=== PATIENT | male | born 1980 | race Caucasian/White ===

== ENCOUNTER 2018-08-22 11:34 | Day surgery (SDC) | payer OTHER ==
[2018-08-21 09:19] VITALS: BMI 37.6
[2018-08-22 12:23] VITALS: RESP 16; TEMP 97.8
[2018-08-22] MEDS ORDERED: LACTATED RINGERS 1,000 ML IV ONE (12:31)
[2018-08-22] MEDS ORDERED: LIDOCAINE 1% 20 ML VIAL (10MG/ML) FOR IV START INTRADERMA ONE (12:31)
[2018-08-22] MEDS ORDERED: PROPOFOL 10 MG/ML 20 ML VIAL IV ONE (12:53)
--- NOTE | 2018-08-22 13:11 | P.PCN ---
Date of Procedure: 08/22/18 Procedure(s) Performed: Brief history: Patient is a pleasant 37-year-old white male, scheduled for an elective upper endoscopy as well as colonoscopy as a part of evaluation of epigastric pain, GERD and chronic diarrhea for the last 2 months duration. He has bowel movements anywhere from 6-8 a day which are loose to watery in consistency but denies any blood or mucus in the stool. Procedure performed: Esophagogastroduodenoscopy with biopsy Colonoscopy with biopsy Preoperative diagnosis: Epigastric pain Chronic diarrhea of 2 months duration Anesthesia: MAC Procedure: After informed consent was obtained from the patient was brought into the endoscopy unit and IV sedation was administered by anesthesia under continuous monitoring. Initially upper endoscopy was done. The Olympus GF 160 video endoscope was inserted inserted into the mouth and esophagus intubated without any difficulty and was gradually advanced into the stomach and duodenum and carefully examined. The bulb and second part of the duodenum appeared normal. Biopsies were done from the duodenum to rule out celiac disease. The scope was then withdrawn into the stomach adequately insufflated with air and upon careful examination the antrum had mild gastritis and biopsies were done from this area. The body, cardia and fundus appeared normal. The scope was then withdrawn into the esophagus. The GE junction was located at 40 cm to the incisors. It appeared regular with no erythema erosions or ulcerations. Rest of the esophagus appeared normal. Patient tolerated the procedure well. At this time the patient continued to remain sedation. Initial digital rectal examination was normal. Olympus CF 160 video colonoscope was then inserted into the rectum and gradually advanced to the cecum without any difficulty. Careful examination was performed as the scope was gradually being withdrawn. The prep was excellent. The cecum, ascending colon, transverse colon, descending colon, sigmoid colon and rectum appeared normal. and biopsies were done from ascending and descending colon to rule out microscopic/collagenous colitis. Retroflexion was performed in the rectum and no lesions were noted. Patient tolerated the procedure well. Impression: 1. Upper endoscopy revealed mild gastritis but no evidence of esophagitis or peptic ulcer disease 2. Colonoscopy was within normal limits with no evidence of colitis or colorectal neoplasia Recommendations: Findings of this examination were discussed with the patient as well as his family. He was advised to follow with the biopsy results. In the meantime she will continue with dicyclomine 10 mg 4 times daily as needed and he'll be seen in the office in 2-3 weeks.
[2018-08-22 13:34] VITALS: BP 135/88; PULSE 78
== END 2018-08-22 13:49 | disposition home or self-care (01) ==
LOC: ORWHC2ENDO 11:34
PROVIDERS: ATTEND Internal Medicine Gastroenterology
DX: K29.50 Unspecified chronic gastritis without bleeding (principal); Z79.899 Other long term (current) drug therapy; E78.5 Hyperlipidemia, unspecified; G47.33 Obstructive sleep apnea (adult) (pediatric); F17.200 Nicotine dependence, unspecified, uncomplicated; K21.9 Gastro-esophageal reflux disease without esophagitis
CPT/HCPCS: 88305; 45380; 43239; J2704

== ENCOUNTER → 2018-09-04 | Outpatient (CLI) | payer OTHER ==
--- NOTE | 2018-09-04 21:47 | CONS ---
CONSULTATION DATE OF SERVICE: 09/04/2018 37-year-old gentleman who has been evaluated in the sleep center for possible obstructive sleep apnea-hypopnea syndrome. HISTORY OF PRESENT ILLNESS/SLEEP WAKE EVALUATION: SLEEP SCHEDULE: Patient usual sleep schedule on working days from 11:30 p.m. to 7 a.m., on weekends from 11 or 12 midnight until noon time. FALLING ASLEEP: Sometimes he has problem with falling asleep. Has TV set in bedroom. DURING SLEEP: He sleeps in different position with extremely loud snoring and witnessed episodes of stopped breathing during the sleep by his . He wakes up from sleep with choking, nocturia, dry mouth, heartburn, episodes of gasping for air, restless legs, sweating up to 6 times at night. DURING THE DAY/SLEEP WAKE EVALUATION: In the morning, patient wakes up tired, has difficulties to pay attention, falling asleep during the day, worries about his sleep, has problems with memory, concentration, irritability and anxiety. Botkins Sleepiness Scale is in extremely high range of 22. The patient does not have scheduled naps, but sometimes falling asleep unpredictably. Usually he does not remember his dreams, but sometimes there are episodes of out of dream movements of his arms usually in 2nd part of the night. No history of hypnagogic hallucinations, sleep paralysis or cataplexy. PAST MEDICAL HISTORY: Positive for hypertension, acid reflux, anxiety. PAST SURGICAL HISTORY: Spinal fusion, level . MEDICATIONS: Zoloft, omeprazole, losartan. SOCIAL HISTORY: Positive for smoking less than 1 pack a day for about 20 years ago. Alcohol consumption rarely. FAMILY HISTORY: Hypertension, snoring, headaches, acid reflux. REVIEW OF SYSTEMS: Multiple awakenings from sleep, significant excessive daytime sleepiness. PHYSICAL EXAM: gentleman without distress. BP 133/69, HR 94, RR 16, height 5 feet 9 inches, weight 278 pounds. Body mass index 41.0, temperature 98.6, oxygen saturation at room air 96%. HEENT: Oropharynx: Low position of soft palate. Mallampati 3. Wide pillars. Wide neck 17-1/2 inches in circumference. NECK : Supple, no JVD. Thyroid is not palpable. LUNGS Clear to percussion and to auscultation. Good air exchange. No wheezing or rhonchi. HEART S1, S2 regular. No murmurs, gallops, or rubs. ABDOMEN: Obese. Soft and nontender. Bowel sounds are present. No organomegaly appreciated. EXTREMITIES No clubbing or cyanosis. CLINICAL EDUCATION ASSISTANT Awake, alert, and oriented X3. Cranial nerves 2 to 7 intact. There is no fasciculation or atrophy. noted. No focal deficits observed. IMPRESSION: 1. Loud snoring, witnessed episodes of stopped breathing during the sleep multiple awakenings from sleep, significant excessive daytime sleepiness. Wide neck. Obstructive sleep apnea-hypopnea syndrome. 2. Obesity BMI 41.0. 3. Episodes of out of dream movements usually in the morning hours. Possible REM sleep behavioral disorder. 4. Hypertension. 5. Acid reflux. 6. History of anxiety. 7. History of back problems status post spinal fusion, level is . 8. History of sleep talking. PLAN: 1. Polysomnography for evaluation of patient's breathing during sleep. 2. CPAP/BiPAP titration if sleep study confirms obstructive sleep apnea-hypopnea syndrome. 3. Preferable position during sleep on the side. 4. No driving if patient feels any sleepiness. 5. I will see patient for follow up visit to explain results of testing and following plan. Thank you very much for referring this patient for consultation. Sincerely, Amadou Vides MD, PhD, FAASM Diplomat of [place] [employer] [place] [employer] [facility] [place] MMODL / KARIN: [id number] /
== END | disposition home or self-care (01) ==
LOC: SLEEP 16:41
PROVIDERS: ATTEND Internal Medicine
DX: G47.33 Obstructive sleep apnea (adult) (pediatric) (principal); E66.9 Obesity, unspecified; I10 Essential (primary) hypertension; K21.9 Gastro-esophageal reflux disease without esophagitis; F17.210 Nicotine dependence, cigarettes, uncomplicated; Z68.41 Body mass index [BMI] 40.0-44.9, adult; Z86.59 Personal history of other mental and behavioral disorders; Z87.39 Personal history of other diseases of the musculoskeletal system and connective tissue; Z87.898 Personal history of other specified conditions; Z98.1 Arthrodesis status; Z79.899 Other long term (current) drug therapy
CPT/HCPCS: 99211

== ENCOUNTER → 2018-12-11 | Outpatient (CLI) | payer OTHER ==
--- NOTE | 2018-12-11 20:05 | PN ---
PROGRESS NOTE DATE OF SERVICE: 12/11/2018 This patient is a 38-year-old gentleman who has been followed in Sleep Center for treatment of obstructive sleep apnea-hypopnea syndrome. Recently the patient had a polysomnogram which showed extremely severe sleep apnea. After that he had CPAP titration and subsequently received a CPAP unit. I discussed the results of sleep studies with the patient in detail. He is able to use CPAP equipment every night for the whole night. He feels much better during sleep and during the day. Evans Sleepiness Scale today is only 3, which is totally normal. I checked his CPAP unit. Pressure is 14 cm of water. Usage is 25/30 nights, and 21/30 nights for more than 4 hours with average usage 5.8 hours. Sometimes the patient had difficulties using the machine because he had to stay on the belly position after a spinal procedure was done. Leak is 43 L/minute. Apnea-hypopnea index is 3.7, which is in normal range. MEDICATIONS: 1. Zoloft. 2. Omeprazole. 3. Losartan. PHYSICAL EXAMINATION: GENERAL: A pleasant patient in no distress. VITAL SIGNS: BP 142/73, HR 82, RR 16, weight 280, temperature 98.4, oxygen saturation at room air 99%. HEENT: PERRLA, EOMI. Evaluation of oropharynx showed tongue protrudes midline. Moderately low position of soft palate. Mallampati II to III. NECK: Supple. No JVD. Thyroid is not palpable. LUNGS: Clear to percussion and to auscultation. Good air exchange. No wheezing or rhonchi. HEART: S1, S2 regular. No murmurs, gallops or rubs. ABDOMEN: Obese. EXTREMITIES: No clubbing or cyanosis. CAREER DEVELOPMENT SPECIALIST: Awake, alert, and oriented X3. Cranial nerves 2 to 7 intact. There is no fasciculation or atrophy. noted. No focal deficits observed. IMPRESSION: 1. Extremely severe obstructive sleep apnea-hypopnea syndrome; apnea-hypopnea index 95 with oxygen desaturation to 47.9%, controlled with CPAP at 14 cm of water. Patient demonstrated good compliance with treatment, benefitting from treatment. 2. Obesity. 3. No significant movements at night now while he is on treatment with CPAP. Previously he had some abnormal movements at night, possibly related to REM sleep. 4. Hypertension. 5. Acid reflux. 6. History of anxiety. 7. History of back problems, status post spinal fusion. 8. History of sleeptalking. PLAN: 1. Patient will continue to use CPAP equipment every night for the whole night. 2. We will consider changing Simplus full-face mask to DreamWear full-face mask. 3. Losing weight. 4. Sleep hygiene with regular time in bed for at least 8 hours. 5. No driving if feeling any sleepiness. Thank you very much for allowing me to participate in the management of your patient. Sincerely, Amadou Vides MD, PhD, FAASM Diplomat of [place] [employer] [place] [employer] Technician [facility] [place] MMODL / IJN: [id number] /
== END ==
LOC: SLEEP 16:46
PROVIDERS: ATTEND Internal Medicine
DX: G47.33 Obstructive sleep apnea (adult) (pediatric) (principal); E66.9 Obesity, unspecified; I10 Essential (primary) hypertension; K21.9 Gastro-esophageal reflux disease without esophagitis; F41.9 Anxiety disorder, unspecified; Z98.1 Arthrodesis status; Z99.89 Dependence on other enabling machines and devices; Z79.899 Other long term (current) drug therapy